=== PATIENT | male | born 1960 | race Caucasian/White ===

== ENCOUNTER 2018-06-02 07:04 | Day surgery (SDC) | payer BC ==
[2018-06-02] MEDS ORDERED: LIDOCAINE 2% MDV (20MG/ML) 20ML VIAL IV ONE (07:05)
[2018-06-02] MEDS ORDERED: PROPOFOL 10 MG/ML VIAL IV ONE (07:05)
[2018-06-02] MEDS ORDERED: EPHEDRINE SULFATE 50 MG/ML ML IV ONE (07:05)
--- NOTE | 2018-06-03 14:30 | Operative Note ---
DATE OF SURGERY: 06/02/2018 OPERATION: 1. ESOPHAGOGASTRODUODENOSCOPY with biopsy. 2. COLONOSCOPY. PREOPERATIVE DIAGNOSIS: Hemoccult-positive stool and weight loss. POSTOPERATIVE DIAGNOSES: 1. Ulcerated and deformed antrum and prepyloric region without stigmata of recent hemorrhage but with friability. 2. Normal colonoscopy. PREPARATION QUALITY: Good. ESTIMATED BLOOD LOSS: Minimum. SPECIMENS: Gastric. COMPLICATIONS: None apparent. PROCEDURE: After informed consent was obtained from the patient, he was placed in the left lateral decubitus position in the endoscopy suite, sedated and monitored by the department of anesthesia. Once sedated, a well-lubricated [id number] gastroscope was placed in the posterior oropharynx and under direct visualization passed to the proximal esophagus. The endoscope was advanced through the proximal, mid, and distal esophagus. The GE junction and esophagus were unremarkable. The gastric body was unremarkable. No fresh or old blood was seen. In the antrum, primarily in the prepyloric region as well as the pyloric ring itself, it was quite deformed, ulcerated, and friable. The duodenal bulb and sweep were otherwise unremarkable. There were no stigmata of recent hemorrhage seen in any ulcerated areas in the antrum and prepyloric/pyloric regions. J-turn views of the proximal stomach were unremarkable. The endoscope was then straightened and random gastric biopsies were obtained to rule out H pylori. The endoscope was removed from the patient with no new findings noted. Digital rectal examination was unremarkable. A well-lubricated [id number] colonoscope was inserted into the rectum and advanced to the cecum. Preparation quality was good. The cecum, ileocecal valve, appendiceal orifice, terminal ileum, ascending colon, transverse colon, descending colon, sigmoid colon, and rectum were free of inflammatory changes, mass lesions, or polyps. Forward and J-turn views of the rectum and anorectum were unremarkable. The endoscope was straightened, the rectal ampulla deflated, and the endoscope was removed. RECOMMENDATIONS: It appears the patient, if his description is accurate, is taking approximately 10 g of acetaminophen per day. This is clearly unacceptable. He should be using 4 g or less at most. He also appears to be taking 800 mg of ibuprofen 3 times daily which is likely when combined with his prednisone the source for his antral ulcerations. He should avoid NSAIDs if possible. He already is taking Celebrex. I believe he should undergo repeat upper endoscopy in 8 weeks to assess ulcer healing. The healing will be retarded by continued use of NSAIDs. It may be a difficult situation given his arthritic issues but the fact that he is already taking Celebrex and other anti-rheumatologic drugs would hopefully reduce his need to continue to use NSAIDs and acetaminophen in the current dosing amounts. As always, thank you for allowing me to participate in the healthcare of your patients. CC: DO EVERT Bae
== END 2018-06-02 08:55 | disposition home or self-care (01) ==
LOC: HOP 07:04
PROVIDERS: ATTEND Internal Medicine Gastroenterology
DX: K92.1 Melena (principal); R63.4 Abnormal weight loss; K25.9 Gastric ulcer, unspecified as acute or chronic, without hemorrhage or perforation; I10 Essential (primary) hypertension; E03.9 Hypothyroidism, unspecified; E78.00 Pure hypercholesterolemia, unspecified; K21.9 Gastro-esophageal reflux disease without esophagitis; M19.90 Unspecified osteoarthritis, unspecified site; M06.9 Rheumatoid arthritis, unspecified
CPT/HCPCS: 00813; 43239; G0121

== ENCOUNTER 2018-07-28 08:02 | Day surgery (SDC) | payer BC ==
[2018-07-28] MEDS ORDERED: LIDOCAINE 2% MDV (20MG/ML) 20ML VIAL IV ONE (08:03)
[2018-07-28] MEDS ORDERED: PROPOFOL 10 MG/ML VIAL IV ONE (08:03)
[2018-07-28] MEDS ORDERED: FENTANYL PF 100MCG/2ML VIAL IV ONE (08:03)
--- NOTE | 2018-07-28 14:10 | Operative Note ---
DATE OF SURGERY: OPERATION: ESOPHAGOGASTRODUODENOSCOPY. PREOPERATIVE DIAGNOSIS: Gastric ulcer followup. POSTOPERATIVE DIAGNOSIS: Healed gastric ulcer. PROCEDURE: After informed consent was obtained from the patient, he was placed in the left lateral decubitus position in the endoscopy suite, sedated and monitored by the department of anesthesia. Once sedated, a well-lubricated [id number] gastroscope was placed in the posterior oropharynx and under direct visualization passed to the proximal esophagus. The endoscope was advanced through the proximal, mid, and distal esophagus. The esophagus in its length was unremarkable. The GE junction was unremarkable. The gastric body demonstrated normal distensibility, normal rugal folds. A small amount of retained acid and bile, which was aspirated with the endoscope. The previous ulcerated pyloric channel and prepyloric region demonstrated perhaps some scarring changes and was moderately widely patent but otherwise unremarkable. The duodenal bulb and sweep were unremarkable. J-turn views of the proximal stomach were unremarkable. The endoscope was straightened. The pylorus was again inspected and appeared unrevealing. The stomach was deflated. The endoscope removed from the patient. RECOMMENDATIONS: The patient should continue his current medical program. We will see him in followup as needed. As always, thank you for allowing me to participate in the healthcare of your patients. CC: DO EVERT Bae
== END 2018-07-28 09:15 | disposition home or self-care (01) ==
LOC: HOP 08:02
PROVIDERS: ATTEND Internal Medicine Gastroenterology
DX: K25.9 Gastric ulcer, unspecified as acute or chronic, without hemorrhage or perforation (principal)
CPT/HCPCS: 43235; 00731; J3010

== ENCOUNTER 2019-11-03 05:23 | Day surgery (SDC) | payer BC ==
[2019-11-03] MEDS ORDERED: MIDAZOLAM HCL 2MG/2ML VIAL IV ONE (05:24)
[2019-11-03] MEDS ORDERED: LIDOCAINE 2% MDV (20MG/ML) 20ML VIAL IV ONE (05:24)
[2019-11-03] MEDS ORDERED: PROPOFOL 10 MG/ML VIAL IV ONE (05:24)
[2019-11-03] MEDS ORDERED: FENTANYL PF 100MCG/2ML VIAL IV ONE (05:24)
[2019-11-03] MEDS ORDERED: ACETAMINOPHEN 1,000 MG/100 ML BTL IVPB ONE (05:34)
[2019-11-03] MEDS ORDERED: CEFAZOLIN 2 Gram 2 GM/50 ML BAG IVPB ONE (06:00)
[2019-11-03] MEDS ORDERED: ACETAMINOPHEN 500 MG TABLET PO ONE (06:00)
[2019-11-03] MEDS ORDERED: RINGERS SOLUTION,LACTATED 1,000 ML IV ONE (06:10)
[2019-11-03] MEDS ORDERED: BUPIVACAINE 0.5% (5MG/ML) PF 30ML VIAL SQ ONE (07:49)
[2019-11-03] MEDS ORDERED: LIDOCAINE 1% MPF 100MG/10ML STERILE-PAK AMPULE SQ ONE (07:50)
[2019-11-03] MEDS ORDERED: BUPIVACAINE LIPOSOME 266MG/20ML VIAL SQ ONE (09:02)
[2019-11-03] MEDS ORDERED: HYDROCODONE/APAP 7.5/325MG TABLET PO ONE (09:29)
--- NOTE | 2019-11-03 10:35 | Operative Note ---
DATE OF SURGERY: 11/03/2019 SURGEON: Tao Neves D.P.M. PREOPERATIVE DIAGNOSIS: HALLUX RIGIDUS LEFT FOOT. POSTOPERATIVE DIAGNOSIS: HALLUX RIGIDUS LEFT FOOT. OPERATION: DORIS-IMPLANT ARTHROPLASTY FIRST METATARSAL PHALANGEAL JOINT LEFT FOOT. ANESTHESIA: Local with IV sedation. INDICATION FOR PROCEDURE: The patient has severe hallux rigidus deformity first metatarsal phalangeal joint left foot not responsive to conservative care requiring surgical intervention. X-ray consistent with severe degenerative changes to first metatarsal phalangeal joint left foot. PROCEDURE IN DETAIL: The patient was brought into the Operating Room Suite and placed supine upon the operating room table. After successful IV sedation was achieved, a tibial nerve block and first ray block was given into the left foot with 20 ml of a 50/50 mixture of 1% Lidocaine plain and 0.5% Marcaine plain after alcohol prep. Padding was put on the left ankle. Pneumatic cuff put in place. The left foot, ankle and leg were prepped and draped in the usual sterile manner and exsanguinated and the tourniquet was raised to 250 mmHg. Anesthesia check indicated that anesthesia was intact. Linear incision outlining made dorsal aspect of first metatarsal phalangeal joint left foot 5 cm in length. Sharp and blunt dissection utilized to deepen the incision. All vital structures are identified and retracted throughout the entire procedure. Linear capsulotomy was performed and reflected showing severe degenerative changes to the entire first metatarsal phalangeal joint with extensive rheumatoid arthritic changes with pannus and scar tissue about the first metatarsal head which was debrided. Hypertrophic synovium and capsule debrided as well. The base of the proximal phalanx was removed with the power sagittal saw cooled with saline perpendicular to the weight bearing surface and perpendicular to the longitudinal bisection of the digit. The base was removed sharply. Long flexor tendon avoided and remained intact. Severe degenerative changes noted to first metatarsal head, this was removed with the power sagittal saw and the cartilage curetted and the head was drilled with 0.045 K-wire to help promote deposition of fibrocartilage. Spurring to the metatarsal head removed with the power sagittal saw as well. Contracted plantar structures released sharply. C-arm indicated appropriate removal of bone from the base and an Osteomed sizer indicated a large implant was indicated. The proximal phalanx was broached, the sizer put in place, adequate size, one large Osteomed doris- implant titanium was inserted in typical fashion without difficulty. Definite increase in range of motion noted. Good bone to implant interface per C-arm erected position of great toe. Wound flushed with copious amounts of sterile saline. Capsule reapproximated in simple interrupted fashion with 4-0 Vicryl, subcu closed in similar fashion, skin closed in subcuticular continuous fashion with 5-0 PDS reinforced with 4-0 nylon. Postoperative first ray block given with 20 ml of Exparel 1.3%. A combination of sterile Adaptic, 4x4's, 4-inch Nargis and Harrison wrap were applied. Tourniquet deflated to 0 mmHg. Hyperemic flush noted to foot. Patient tolerated the procedure well and was transferred to the Recovery Room in stable condition without complaint. He is to minimize ambulation with CAM boot, keep extremity elevated, take pain medication as needed, keep dressing clean, dry and intact, contact me by cell phone and follow-up in the office in the next several days. JOB NUMBER: [id number] [facility]
== END 2019-11-03 09:57 | disposition home or self-care (01) ==
LOC: SUR 05:23
PROVIDERS: ATTEND Podiatrist
DX: M20.22 Hallux rigidus, left foot (principal); I10 Essential (primary) hypertension; M06.9 Rheumatoid arthritis, unspecified; E78.00 Pure hypercholesterolemia, unspecified; E03.9 Hypothyroidism, unspecified; G62.9 Polyneuropathy, unspecified; K21.9 Gastro-esophageal reflux disease without esophagitis; G47.33 Obstructive sleep apnea (adult) (pediatric)
CPT/HCPCS: 28291; 01480; C1713; J3010; J0690; C9290; J3490; J7120